=== PATIENT | female | born 1960 | race Caucasian/White ===

== ENCOUNTER 2023-08-23 08:43 | Emergency (ER) | payer OTHER ==
[~2023-08-23] VITALS: Ht 154.9 cm; Wt 57.6 kg
[2023-08-23 11:02] LABS: HEMATOCRIT 39.7 % (36.0-45.00); HEMOGLOBIN 13.5 g/dL (12.0-15.00); MEAN CORPUSCULAR HEMOGLOBIN 28.6 pg (27.00-32.0); PLATELET COUNT 302 K/uL (150-450); RED BLOOD COUNT 4.72 M/uL (4.00-6.00); RED CELL DISTRIBUTION WIDTH 13.9 % (11.5-14.5)
[2023-08-23 11:12] LABS: CALCIUM 9.6 mg/dL (8.5-10.1); CREATININE SERUM 0.77 mg/dL (0.55-1.02); GFR 76.46; POTASSIUM 3.94 mEq/L (3.5-5.1)
[2023-08-23] MEDS ORDERED: DICLOFENAC POTA50 MG PO (12:33)
== END 2023-08-23 12:43 | disposition home or self-care (01) ==
LOC: ER 08:44
PROVIDERS: General Practice
DX: R42 Dizziness and giddiness (principal); R51.9 Headache, unspecified; M62.838 Other muscle spasm; Z88.2 Allergy status to sulfonamides; Z88.8 Allergy status to other drugs, medicaments and biological substances
CPT/HCPCS: 36415; 70450; 72040; 93005; 96372; 99284; J1885; J2360

== ENCOUNTER → 2024-08-15 06:19 | Outpatient (CLI) | payer OTHER ==
[~2024-08-15 06:19] MED LIST: DICLOFENAC POTA50 MG PO
[2024-08-15 07:25] LABS: URINE APPEARANCE Clear; URINE BILIRRUBIN Negative (NEGATIVE); URINE BLOOD Negative; URINE COLOR Yellow; URINE GLUCOSE Negative (NEGATIVE); URINE KETONE Negative (NEGATIVE); URINE LEUKOCYTE Negative; URINE NITRATE Negative; URINE PROTEIN Negative (NEGATIVE); URINE UROBILINOGEN 0.2 E.U./dl
[2024-08-15 07:28] LABS: URINE BACTERIA 91.7 uL (0.0-1933); URINE EPITHELIAL CELLS 13.5 uL (0.0-38.8); URINE RBC 18.8 uL (0.0-20.8); URINE WBC 8.8 uL (0.0-23.2)
[2024-08-15 07:42] LABS: URINE CAST 0.14 uL (0.0-1.40)
[2024-08-15 07:45] LABS: HEMATOCRIT 39.6 % (36.0-45.00); HEMOGLOBIN 13.8 g/dL (12.0-15.00); MEAN CORPUSCULAR HEMOGLOBIN 29.8 pg (27.00-32.0); MEAN CORPUSCULAR HGB CONC 34.7 g/dl (32.0-36.0); PLATELET COUNT 230 K/uL (150-450); RED BLOOD COUNT 4.61 M/uL (4.00-6.00); RED CELL DISTRIBUTION WIDTH 14.1 % (11.5-14.5)
[2024-08-15 09:07] LABS: ALBUMIN 3.8 gm/dL (3.4-5.0); BILIRUBIN TOTAL 0.47 mg/dL (0.3-1.2); CALCIUM 9.2 mg/dL (8.5-10.1); CHOL HDL RATIO 5.2 (0-5.0); CREATININE SERUM 0.73 mg/dL (0.55-1.02); FREE TRIODOTIRONINE 2.42 pg/ml (2.18-3.98); GFR 81.05; GLOBULINA 3.1 G/DL (2.4-3.5); POTASSIUM 4.08 mEq/L (3.5-5.1); T4 FREE 0.95 NG/ML (0.76-1.46); TOTAL PROTEIN 6.9 gm/dL (6.4-8.2); TSH 2.82 uIU/mL (0.358-3.74)
== END | disposition home or self-care (01) ==
LOC: LAB 06:19
PROVIDERS: ATTEND Specialist
DX: E11.21 Type 2 diabetes mellitus with diabetic nephropathy (principal); N39.9 Disorder of urinary system, unspecified; E03.8 Other specified hypothyroidism; E11.69 Type 2 diabetes mellitus with other specified complication; Z13.220 Encounter for screening for lipoid disorders; D64.89 Other specified anemias

== ENCOUNTER 2024-09-29 06:17 | Outpatient (CLI) | payer OTHER ==
[2024-09-29 09:40] LABS: ob NEGATIVE (NEGATIVE)
== END 2024-09-29 06:18 | disposition home or self-care (01) ==
LOC: LAB 06:17
PROVIDERS: ATTEND Internal Medicine Gastroenterology
DX: D51.0 Vitamin B12 deficiency anemia due to intrinsic factor deficiency (principal); D51.9 Vitamin B12 deficiency anemia, unspecified; Z12.11 Encounter for screening for malignant neoplasm of colon; D64.9 Anemia, unspecified; B96.81 Helicobacter pylori [H. pylori] as the cause of diseases classified elsewhere; B82.9 Intestinal parasitism, unspecified

== ENCOUNTER 2024-10-05 08:48 | Outpatient (CLI) | payer OTHER | END 2024-10-05 08:56 | disposition home or self-care (01) | LOC: SONOGRAMA 08:48 | PROVIDERS: ATTEND Internal Medicine Gastroenterology | DX: R10.9 Unspecified abdominal pain (principal) ==

== ENCOUNTER 2024-10-19 08:37 | Outpatient (CLI) | payer OTHER | END 2024-10-19 08:40 | disposition home or self-care (01) | LOC: MAMO-SONO 08:37 | PROVIDERS: ATTEND Obstetrics & Gynecology Gynecology | DX: N64.4 Mastodynia (principal); Z12.31 Encounter for screening mammogram for malignant neoplasm of breast ==

== ENCOUNTER 2024-11-25 07:54 | Outpatient (CLI) | payer OTHER ==
[2024-11-25 09:11] LABS: HEMATOCRIT 38.3 % (36.0-45.00); HEMOGLOBIN 12.9 g/dL (12.0-15.00); MEAN CELL VOLUME 85.6 fL (80.00-100.00); MEAN CORPUSCULAR HEMOGLOBIN 28.8 pg (27.00-32.0); MEAN CORPUSCULAR HGB CONC 33.7 g/dl (32.0-36.0); PLATELET COUNT 203 K/uL (150-450); RED BLOOD COUNT 4.48 M/uL (4.00-6.00); RED CELL DISTRIBUTION WIDTH 13.9 % (11.5-14.5)
[2024-11-25 09:24] LABS: URINE APPEARANCE Turbid; URINE BILIRRUBIN Negative (NEGATIVE); URINE BLOOD Negative; URINE COLOR Yellow; URINE GLUCOSE Negative (NEGATIVE); URINE KETONE Negative (NEGATIVE); URINE LEUKOCYTE Negative; URINE NITRATE Negative; URINE PROTEIN Negative (NEGATIVE); URINE UROBILINOGEN 0.2 E.U./dl
[2024-11-25 09:28] LABS: URINE BACTERIA 4.8 uL (0.0-1933); URINE EPITHELIAL CELLS 1.8 uL (0.0-38.8); URINE RBC 17.5 uL (0.0-20.8); URINE WBC 3.6 uL (0.0-23.2)
[2024-11-25 09:56] LABS: URINE CAST 0.14 uL (0.0-1.40)
[2024-11-25 10:20] LABS: ALBUMIN 4.1 gm/dL (3.4-5.0); BILIRUBIN TOTAL 0.49 mg/dL (0.3-1.2); CALCIUM 9.1 mg/dL (8.5-10.1); CHOL HDL RATIO 5.5 (0-5.0); CREATININE SERUM 0.68 mg/dL (0.55-1.02); FERRITIN 96.9 NG/ML (8-252); FREE TRIODOTIRONINE 2.06 pg/ml (2.18-3.98); GFR 87.96; POTASSIUM 4.04 mEq/L (3.5-5.1); T4 FREE 1.01 NG/ML (0.76-1.46); TOTAL PROTEIN 7.1 gm/dL (6.4-8.2); TSH 1.4 uIU/mL (0.358-3.74)
[2024-11-25 10:23] LABS: MANUAL PLATELET COUNT 326
[2024-11-25 10:24] LABS: PLATELET ESTIMATE NORMAL (NORMAL)
[2024-11-25 13:10] LABS: FOLIC ACID > 20.00 ng/ml (4.78-20); VITAMIN D3 25 HYDROXY 65.98 ng/ml (30-120)
[2024-11-26 11:09] LABS: DNA AB DOUBLE STRABDED 1 IU/mL (0-9); sjogrens ssa < 0.2 AI (0.0-0.9); sjogrens ssb < 0.2 AI (0.0-0.9)
[2024-11-26 13:04] LABS: COMPLEMENT C3 150 mg/dL (82-167); COMPLEMENT C4 24 mg/dL (12-38); HOMOCYSTEINE 6.3 umol/L (0.0-17.2); TRANSFERIN 283 mg/dL (192-364); hgb a 97.7 % (96.4-98.8); hgb a2 2.3 % (1.8-3.2); hgb f 0 % (0.0-2.0); hgb s 0 % (0.0)
[2024-11-27 17:04] LABS: g6pd quant 230 (127-427); rbc 4.42 x10E6/uL (3.77-5.28)
== END 2024-11-25 08:17 | disposition home or self-care (01) ==
LOC: EDBD 07:54 → LAB 07:54
PROVIDERS: ATTEND Internal Medicine Hematology & Oncology
DX: E21.0 Primary hyperparathyroidism (principal); M06.1 Adult-onset Still's disease; M15.0 Primary generalized (osteo)arthritis; E03.9 Hypothyroidism, unspecified; E11.21 Type 2 diabetes mellitus with diabetic nephropathy; N39.0 Urinary tract infection, site not specified; E78.2 Mixed hyperlipidemia; D64.9 Anemia, unspecified; E55.9 Vitamin D deficiency, unspecified; D51.1 Vitamin B12 deficiency anemia due to selective vitamin B12 malabsorption with proteinuria; M85.851 Other specified disorders of bone density and structure, right thigh; K90.89 Other intestinal malabsorption; D50.8 Other iron deficiency anemias; I10 Essential (primary) hypertension; R74.02 Elevation of levels of lactic acid dehydrogenase [LDH]; R79.9 Abnormal finding of blood chemistry, unspecified; K76.89 Other specified diseases of liver; D63.8 Anemia in other chronic diseases classified elsewhere; D68.59 Other primary thrombophilia

== ENCOUNTER 2025-02-06 11:15 | Outpatient (CLI) | payer OTHER | END 2025-02-06 11:18 | disposition home or self-care (01) | LOC: RAD 11:15 | PROVIDERS: ATTEND Urology | DX: N20.0 Calculus of kidney (principal) ==

== ENCOUNTER 2025-02-14 07:41 | Outpatient (CLI) | payer OTHER | END 2025-02-14 07:47 | disposition home or self-care (01) | LOC: RAD 07:41 | PROVIDERS: ATTEND Specialist | DX: J45.998 Other asthma (principal) ==

== ENCOUNTER 2025-02-17 07:23 | Outpatient (CLI) | payer OTHER | END 2025-02-17 07:29 | disposition home or self-care (01) | LOC: TOM 07:23 | PROVIDERS: ATTEND Urology | DX: N20.0 Calculus of kidney (principal); R31.0 Gross hematuria ==

== ENCOUNTER 2025-03-22 07:11 | Outpatient (CLI) | payer OTHER | END 2025-03-22 07:12 | disposition home or self-care (01) | LOC: NUCLEAR 07:11 | PROVIDERS: ATTEND Internal Medicine Hematology & Oncology | DX: D35.1 Benign neoplasm of parathyroid gland (principal) | CPT/HCPCS: 78013; A9512 ==